=== PATIENT | female | born 1950 | race Caucasian/White ===

== ENCOUNTER 2016-06-16 13:25 | Inpatient (IN) | payer OTHER ==
--- NOTE | 2016-06-16 14:26 | Diag Imaging Result Document ---
PROCEDURE NAME: CHEST-2 VIEWS - 06/16/2016 FRONTAL AND LATERAL CHEST, TWO VIEWS: COMPARISON: 11/17/2015. FINDINGS: The lungs are well expanded. The heart is mildly prominent. The vessels are not distended. No pleural effusions. There are no infiltrates. IMPRESSION: 1. No pneumonia. 2. Mild cardiomegaly.
--- NOTE | 2016-06-16 14:46 | PROVIDER DOCUMENTATION ---
HPI-Respiratory General - General Chief Complaint: Flu Symptoms Stated Complaint: FLU SX Time Seen by Provider: 06/16/16 14:11 Source: patient Allergies/Adverse Reactions: Patient Allergies Allergy/AdvReac Type Severity Reaction Status Date / Time No Known Allergies Allergy Verified 06/16/16 14:33 Home Medications: Home Medication List Medication Instructions Recorded Confirmed Last Taken Type Meclizine [Antivert] 25 mg PO TID PRN PRN 08/03/13 06/16/16 06/16/16 11:00 History ATORVAstatin [Lipitor] 20 mg PO DAILY 10/24/14 06/16/16 11/16/15 07:00 History Gabapentin [Neurontin] 300 mg PO BID 11/18/15 06/16/16 2 Days Ago History Pantoprazole [Protonix] 40 mg PO DAILY 11/18/15 06/16/16 06/16/16 11:00 History Bumetanide [Bumex] 1 mg PO DAILY #0 tablet 11/19/15 06/16/16 Unknown Rx Carisoprodol [Soma] 350 mg PO TID PRN PRN #0 tablet 11/19/15 06/16/16 Unknown Rx Citalopram [Celexa] 40 mg PO DAILY #0 tablet 11/19/15 06/16/16 Unknown Rx Cyanocobalamin [Vitamin B-12] 500 microgm PO DAILY #0 tablet 11/19/15 06/16/16 Unknown Rx Hydralazine [Apresoline] 25 mg PO BID #0 tablet 11/19/15 06/16/16 Unknown Rx Hydrocodone/APAP 7.5 mg/325 mg 1 each PO Q4H PRN PRN #0 tablet 11/19/15 Unknown Rx [[place]-7.5] Metformin [Glucophage] 500 mg PO BID CC #14 tablet 11/19/15 06/16/16 Unknown Rx Potassium Chloride [Klor-Con M20] 20 meq PO DAILY #0 tab.er.prt 11/19/15 Unknown Rx Solifenacin Succinate [Vesicare] 10 mg PO DAILY 06/16/16 06/16/16 Unknown History CephALEXIN [Keflex] 500 mg PO Q6HR #20 capsule 06/20/16 Unknown Rx Losartan [Cozaar] 100 mg PO DAILY #30 tablet 06/20/16 Unknown Rx Rivaroxaban [Xarelto] 15 mg PO BID #42 tablet 06/20/16 Unknown Rx - History of Present Illness-Resp Quality of Pain: reports: aching Severity in ED: reports: mild Onset/Duration: reports: last week Timing: reports: still present Exposure: reports: unknown cause Cough Quality/Degree: reports: moderate Episode Frequency: frequent episodes Current Respiratory Medication Therapy: Initiated see nurses note Modifying Factors: improves with: nothing Associated Symptoms: reports: cough, fever/chills (F), muscle/bodyaches, shortness of breath Similar Symptoms Previously?: Yes Recently seen or treated by another doctor?: No Review of Systems - Adult - REVIEW OF SYSTEMS - ADULT Constitutional: reports: fever. denies: chills Eyes: denies: blurred vision, double vision Ears, Nose, Mouth & Throat: denies: ear pain, nose pain, throat pain Cardiovascular: denies: chest pain, heart murmur, irregular heart rate Respiratory: reports: cough, shortness of breath Gastrointestinal: denies: abdominal pain, diarrhea, nausea, vomiting Genitourinary: denies: dysuria, hematuria Musculoskeletal: reports: muscle aches, muscle weakness. denies: bone pain, joint pain, neck pain Integumentary: denies: hives, itching Neurological: denies: dizziness/vertigo, headache/migraines Psychiatric: reports: no symptoms reported Endocrine: reports: no symptoms reported Hematologic/Lymphatic: reports: no symptoms reported Allergic/Immunologic: reports: no symptoms reported All Other Systems: Reviewed and Negative Past History - Adult - PAST MEDICAL HISTORY-ADULT Review of Records: reports: Nursing Assessment Review, Medications Reviewed, Social history reviewed & non-contributory. Major Childhood Illnesses: reports: denies history Cardiovascular: reports: HTN Respiratory: reports: denies history Gastrointestinal: reports: GERD, polyps Obstetrical/Gynecological: reports: denies history Genitourinary: reports: denies history Musculoskeletal: reports: chronic pain Neurological: reports: denies history Psychiatric: reports: anxiety, depression Endocrine/Immune: reports: Diabetes Other Conditions: reports: denies history - PRIOR SURGERIES/PROCEDURES Surgical/Procedure History: reports: appendectomy, colonoscopy, hysterectomy, other (carpal tunnel) - IMMUNIZATION STATUS Childhood Immunizations: See Nurse Assessment Flu Vaccine: See Nurse Assessment - FAMILY HISTORY Family History: reviewed, not pertinent - SOCIAL HISTORY Smoking: cigarettes, greater than 1 pack/day Provider spent 3-5 mins advising pt. on dangers of tobacco.: Discussed manners to quit use, and f/u contacts for add'l counseling. Substance Use: denies Living Situation: family Physical Exam-General - PHYSICAL EXAM-ADULT Initial Vital Signs Reviewed: Yes - CONSTITUTIONAL General Appearance: appears well, alert, no apparent distress - EYES Eyes: PERRL/EOMI, pink conjunctivae, fundi clear, no AV nicking - HEAD, EARS, NOSE, MOUTH & THROAT HENMT: normocephalic/atraumatic, moist mucous membranes, normal ENT inspection, TMs normal, pharynx normal - NECK Neck: non-tender, full range of motion, supple, normal inspection - RESPIRATORY Respiratory: chest non-tender, lungs clear, normal breath sounds, no pleuratic chest pain, no respiratory distress, no accessory muscle use - CARDIOVASCULAR Cardiovascular: normal peripheral pulses, regular rate, rhythm, no edema, no gallop, no JVD, no murmur - GASTROINTESTINAL (ABDOMEN) Abdominal Exam: normal bowel sounds, non tender, soft, no organomegaly, no pulsatile mass - LYMPHATIC Lymphatic: no adenopathy - MUSCULOSKELETAL Back Exam: normal inspection, no CVA tenderness, no vertebral tenderness Extremity: normal range of motion, non-tender, normal gait, normal inspection, no pedal edema, no calf tenderness, normal capillary refill, pelvis stable - SKIN Integumentary: normal color, normal turgor, warm/dry - NEUROLOGIC Neurologic: grossly normal - PSYCHIATRIC Psych/Mental Status: normal mood/affect, oriented x 3 Progress - PLAN OF CARE/RESULTS Progress/Plan/Lab Results: Laboratory Tests 06/16/16 Unknown Influenza A (Rapid) NEGATIVE Influenza B (Rapid) NEGATIVE Orders Category Date Time Status CHEST-2 VIEWS [RAD] Stat Exams 06/16/16 14:02 Draft Flu [INFLUENZA SCREEN PL] Stat Lab 06/16/16 Completed Vital Signs - 24 hr 06/16/16 13:56 Temperature 99.5 F Pulse Rate 93 H Respiratory 19 Rate Blood Pressure 112/82 O2 Sat by Pulse 88 L Oximetry Laboratory Tests 06/16/16 06/16/16 06/16/16 14:50 14:50 14:50 WBC RBC Hgb Hct MCV MCH MCHC RDW Std Deviation Plt Count MPV Immature Gran % (Auto) Neut % (Auto) Lymph % (Auto) [place] % (Auto) Eos % (Auto) Baso % (Auto) Immature Gran # (Auto) Neut # (Auto) Lymph # (Auto) [place] # (Auto) Eos # (Auto) Baso # (Auto) Sodium 132 L Potassium 6.1 H* Chloride 97 L Carbon Dioxide 26 Anion Gap 9 BUN 26 H Creatinine 1.0 H Estimated GFR/1.73 m2 56 BUN/Creatinine Ratio 26 Glucose 147 H Calculated Osmolality 272 Calcium 9.4 Total Bilirubin 0.60 AST 912 H ALT 660 H Alkaline Phosphatase 158 H Troponin T 0.032 Wvq-[id number]-Ryyowqdoqau Pept 5600 H Total Protein 7.5 Albumin 4.1 Globulin 3.0 Albumin/Globulin Ratio 1.0 Urine Source Urine Color Urine Clarity Urine pH Ur Specific [place] Urine Protein Urine Ketones Urine Blood Urine Nitrite Urine Bilirubin Urine Urobilinogen Urine Microscopic RBC Urine WBC Urine Microscopic WBC Ur Epithelial Cells Urine Bacteria Urine Glucose Influenza A (Rapid) Influenza B (Rapid) 06/16/16 06/16/16 06/16/16 14:50 15:00 Unknown WBC 12.69 H RBC 4.88 Hgb 13.0 Hct 41.4 MCV 84.8 MCH 26.6 L MCHC 31.4 L RDW Std Deviation 16.7 H Plt Count 329 MPV 9.0 Immature Gran % (Auto) 0.5 Neut % (Auto) 77.1 H Lymph % (Auto) 12.1 L [place] % (Auto) 10.1 H Eos % (Auto) 0.0 Baso % (Auto) 0.2 Immature Gran # (Auto) 0.06 H Neut # (Auto) 9.79 H Lymph # (Auto) 1.53 [place] # (Auto) 1.28 H Eos # (Auto) 0.00 Baso # (Auto) 0.03 Sodium Potassium Chloride Carbon Dioxide Anion Gap BUN Creatinine Estimated GFR/1.73 m2 BUN/Creatinine Ratio Glucose Calculated Osmolality Calcium Total Bilirubin AST ALT Alkaline Phosphatase Troponin T Flr-W-Kjlfnmdbrof Pept Total Protein Albumin Globulin Albumin/Globulin Ratio Urine Source CLEAN CATCH Urine Color YELLOW Urine Clarity VERY CLOUDY A Urine pH 5.0 Ur Specific [place] 1.020 Urine Protein 1+(30 mg/dL) A Urine Ketones TRACE Urine Blood NEGATIVE Urine Nitrite POSITIVE A Urine Bilirubin NEGATIVE Urine Urobilinogen NORMAL Urine Microscopic RBC Not Reportable Urine WBC 2+ A Urine Microscopic WBC 20-40 A Ur Epithelial Cells <10 Urine Bacteria 2+ Urine Glucose NEGATIVE Influenza A (Rapid) NEGATIVE Influenza B (Rapid) NEGATIVE - EKG 1 Time of EKG reading by physician:: 15:51 EKG Read and Signed by:: Sher Short EKG Interpretation (*Must complete 3 of following elements*): Abnormal Rate: 87 Rhythm: normal sinus rhythm Comments: possible left atrial enlargement; anterior infarct, age undetermined - XRAY 1 XRAY: Bilateral XRAY Study: Chest Impression: Abnormal XRAY Interpretation: no pneumonia; mild cardiomegaly - CONSULTS/PCP/HOSPITALIST Notification #1 *Consult/PCP/Hospitalist*: Dr. Quinones Time Discussed: 15:56 (Dr. Quinones accepted admit ) Reason/Comments: Dr. Short consulted with Dr. Quinones about admit of Pt Consult Disposition: Admit Departure - Departure Disposition: ADMITTED INPATIENT 09 Certified Medical Emergency: Emergent Condition: Stable Attestation - Scribe Verification/Attestation Scribe:: Maria Luisa Galarza Acting as Scribe for:: Sher Short Scribe documention review:: This chart was documented by a scribe and accurately reflects the service the provider performed and the decisions made by the provider.
[2016-06-16 15:05] LABS: MANUAL DIFF NEEDED? NO
[2016-06-16 15:08] LABS: BASO% 0.2 % (0.0-0.8); HEMATOCRIT 41.4 % (37.0-47.0); IMM GRAN# 0.06 X1000 (0.0-0.04); IMM GRAN% 0.5 % (0.0-0.5); LYMPH# 1.53 X1000 (1.2-3.4); LYMPH% 12.1 % (20.5-51.1); MCH 26.6 PG (27-31); MCHC 31.4 g/dL (33-37); MCV 84.8 FL (81-99); MONO# 1.28 X1000 (0.11-0.59); MONO% 10.1 % (1.7-9.3); NEUT% 77.1 % (42.2-75.2); PLT 329 X1000 (130-400); RBC 4.88 XMIL (4.2-5.4)
[2016-06-16 15:35] LABS: BILIRUBIN URINE NEGATIVE (NEGATIVE); BLOOD URINE NEGATIVE (NEGATIVE); CLARITY VERY CLOUDY (CLEAR); COLOR YELLOW; GLUCOSE URINE NEGATIVE (NEGATIVE); LEUKOCYTES URINE 2+ (NEGATIVE); NITRITE URINE POSITIVE (NEGATIVE); PROTEIN URINE 1+(30 mg/dL) mg/dL (NEGATIVE); UROBILINOGEN URINE NORMAL
[2016-06-16 15:39] LABS: ALBUMIN 4.1 g/dL (3.5-5.0); CALCIUM 9.4 mg/dL (8.8-10.2); POTASSIUM 6.1 mmol/L (3.5-5.1); TOTAL BILIRUBIN 0.6 mg/dL (0.20-1.00); TOTAL PROTEIN 7.5 g/dL (6.3-8.3)
[2016-06-16] MEDS ORDERED: LASIX IV ONE (15:45)
[2016-06-16 15:47] LABS: URINE CULTURE PL NEEDED? YES; URINE EPITHELIAL CELLS <10 /HPF (<10); URINE SOURCE CLEAN CATCH; URINE WBC 20-40 /HPF (<10)
[2016-06-16 16:44] LABS: CALCIUM 9.7 mg/dL (8.8-10.2); POTASSIUM 5.7 mmol/L (3.5-5.1)
[2016-06-16] MEDS ORDERED: NORCO-7.5 PO PRN (17:42)
[2016-06-16] MEDS ORDERED: SOMA PO PRN (17:42)
[2016-06-16] MEDS: COZAAR PO SCH (19:50)
[2016-06-16] MEDS: KEFLEX PO SCH (19:50)
[2016-06-16] MEDS: LASIX IV SCH ×2 (19:50→21:14)
[2016-06-16] MEDS: ASPIRIN PO SCH ×2 (19:50→21:14)
[2016-06-16] MEDS: APRESOLINE PO SCH ×2 (19:50→21:14)
[2016-06-16] MEDS: NEURONTIN PO SCH ×2 (19:50→21:14)
[2016-06-16] MEDS: NITROGLYCERIN TOP SCH (19:51)
--- NOTE | 2016-06-16 21:20 | HISTORY AND PHYSICAL ---
CHIEF COMPLAINT: Shortness of breath. PRESENT ILLNESS: This is the first recent [facility] admission for this 66-year-old, white female with COPD and smoker, who presented to the emergency room with a history of progressive shortness of breath over about a week's time. She takes her diuretic, Bumex, p.r.n. and had not had any for 2 days. On presentation, O2 saturation was about 75. D-dimer was elevated at 4.3. There was no calf tenderness or significant ankle edema. Chest x-ray showed cardiomegaly but no pulmonary edema. proBNP was 5600. Troponin T was normal at 0.03. She was given Lasix 40 mg IV in the ER and is admitted on oxygen with a Venturi mask to the medical floor. PAST MEDICAL HISTORY: Significant for carotid vascular disease requiring endarterectomy. She has been diabetic for several years fairly well-controlled on metformin. She was admitted in November 2015 with diagnosis of carbon monoxide poisoning and COPD. There is a history of mild claudication with ambulation. 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 PRESENT MEDICATIONS: Metformin 500 mg b.i.d., hydralazine 25 mg b.i.d., aspirin 81 mg once daily, [place] 10/325 1 t.i.d. for pain, Soma 350 mg b.i.d., Celexa 40 mg 1 daily, Protonix 40 mg 1 daily, gabapentin 300 mg b.i.d., Januvia 100 mg daily, atorvastatin 20 mg at bedtime, and vitamin B complex 1 daily. ALLERGIES: None known. REVIEW OF SYSTEMS: Chronic smoker. No history of recent weight change. She has had occasional trace ankle edema and she takes Bumex p.r.n. She has chronic back and neck pain requiring [place] and Soma. Her also smokes. FAMILY HISTORY: Significant for hypertension and heart disease. She had been on losartan 100 mg daily. This was discontinued in April. Her last time in the office was 04/22/2016 and blood pressure was 138/60. SOCIAL HISTORY: and lives with her . She smokes over a pack a day. There is no history of significant alcohol use. PHYSICAL EXAMINATION: VITAL SIGNS: Temperature 97.8 degrees, heart rate 83, respirations 21, blood pressure 181/105, O2 saturation on Venturi mask 93%. Height 5 feet 7 inches, weight 218. GENERAL: Patient is a well-developed, well-nourished white female with shortness of breath. HEENT: Pupils equal, round, and reactive to light. Tympanic membranes without inflammation. Pharynx benign with no erythema or exudate. NECK: Supple with no mass or lymphadenopathy. There is no jugular venous distention. HEART: Regular in rate and rhythm with no murmur, rub or gallop. LUNGS: Clear with no rales or rhonchi. ABDOMEN: Soft with no mass, tenderness, or organomegaly. EXTREMITIES: No cyanosis, clubbing, or edema. There is no calf tenderness. RECTAL AND GENITALIA: Deferred. NEUROLOGICAL: Grossly intact. IMPRESSION: 1. Chronic obstructive pulmonary disease, acute exacerbation. 2. Cystitis. 3. Hypertension. 4. Smoker. PLAN: Admit for further evaluation and treatment including IV Lasix. Echocardiogram is ordered as well as venous Doppler study of her legs.
--- NOTE | 2016-06-16 22:31 | EKG Report ---
Test Performed on : 06/16/2016 3:51:08 PM Test Reason : Blood Pressure : / mmHG Vent. Rate : 087 BPM Atrial Rate : 087 BPM P-R Int : 156 ms QRS Dur : 078 ms QT Int : 362 ms P-R-T Axes : 057 011 061 degrees QTc Int : 435 ms Normal sinus rhythm. Possible Left atrial enlargement Anterior infarct , age undetermined Abnormal ECG No previous ECGs available Unconfirmed Result
[2016-06-17] MEDS: KEFLEX PO SCH ×4 (02:47→20:55)
[2016-06-17] MEDS: NITROGLYCERIN TOP SCH ×4 (02:47→20:55)
[2016-06-17] MEDS: PROTONIX PO SCH (06:03)
[2016-06-17] MEDS: LASIX IV SCH ×2 (08:22→20:55)
[2016-06-17] MEDS: LOVENOX SUBQ SCH (08:22)
[2016-06-17] MEDS: APRESOLINE PO SCH ×2 (08:22→20:55)
[2016-06-17] MEDS: COZAAR PO SCH (08:23)
[2016-06-17] MEDS: VESICARE PO SCH (08:23)
[2016-06-17] MEDS: ANTIVERT PO SCH (08:23)
[2016-06-17] MEDS: CELEXA PO SCH (08:23)
[2016-06-17] MEDS: GLUCOPHAGE PO SCH ×2 (08:23→16:56)
[2016-06-17] MEDS: NEURONTIN PO SCH ×2 (08:23→20:55)
[2016-06-17] MEDS: LIPITOR PO SCH (08:24)
--- NOTE | 2016-06-17 09:22 | PROGRESS NOTE ---
DATE: 06/17/2016 OBJECTIVE: Vital Signs: Temperature 98.4 degrees, heart rate 86, respirations 20, blood pressure 160/55, O2 saturation 93% on Venturi mask. General: She rested fairly well last night. She cannot tell if there is any improvement in her breathing. Lungs: Clear to auscultation. Abdomen: Soft. PLAN: Venous Doppler of her legs and echocardiogram.
[2016-06-17] MEDS ORDERED: ROBITUSSIN-DM PO PRN (17:08)
[2016-06-17] MEDS: ASPIRIN PO SCH (20:55)
[2016-06-17] MEDS: DUONEB (A & A) INH SCH (22:46)
[2016-06-18] MEDS ORDERED: LABETALOL ONE (01:13)
[2016-06-18] MEDS: NITROGLYCERIN TOP SCH ×4 (02:28→20:00)
[2016-06-18] MEDS: KEFLEX PO SCH ×4 (02:28→20:00)
[2016-06-18] MEDS: DUONEB (A & A) INH SCH ×4 (03:44→23:29)
[2016-06-18 06:08] LABS: AGAP 11; BUN 22 mg/dL (8-22); CALCIUM 9.5 mg/dL (8.8-10.2); CHLORIDE 96 mmol/L (98-107); COSMO 291; POTASSIUM 3.6 mmol/L (3.5-5.1); SODIUM 143 mmol/L (136-145); TCO2 37 mmol/L (25-35)
[2016-06-18] MEDS: PROTONIX PO SCH (06:18)
--- NOTE | 2016-06-18 08:22 | PROGRESS NOTE ---
DATE: 06/18/2016 Stable with temperature 97.6, heart rate 77, respirations 18, and blood pressure 159/67. O2 saturation 96% on nasal oxygen. LABORATORY: Sodium 143, potassium 3.6, BUN 22, creatinine 0.8. The patient feels a little better with less shortness of breath. Lungs are clear to auscultation. There is no ankle edema. Results of tests done yesterday including echocardiogram and venous Doppler of her legs were pending. PLAN: Continue current therapy. Nebulizer treatments were added yesterday.
[2016-06-18] MEDS: LOVENOX SUBQ SCH ×2 (08:48→20:00)
[2016-06-18] MEDS: CELEXA PO SCH (08:48)
[2016-06-18] MEDS: NEURONTIN PO SCH ×2 (08:48→20:23)
[2016-06-18] MEDS: COZAAR PO SCH (08:49)
[2016-06-18] MEDS: LIPITOR PO SCH (08:49)
[2016-06-18] MEDS: ANTIVERT PO SCH (08:49)
[2016-06-18] MEDS: VESICARE PO SCH (08:49)
[2016-06-18] MEDS: GLUCOPHAGE PO SCH ×2 (08:50→16:50)
[2016-06-18] MEDS: LASIX IV SCH ×2 (08:50→20:23)
[2016-06-18] MEDS: APRESOLINE PO SCH ×2 (08:50→20:23)
--- NOTE | 2016-06-18 19:00 | ECHO REPORT ---
ORDER DATE: 06/17/2016 INTERPRETING PHYSICIAN: Dr. Salvador CLINICAL INDICATIONS: Dpvrh[age]heza[age]gr[age]-old female. REASON FOR STUDY: Congestive heart failure, hypoxia. M-MODE MEASUREMENTS: Right ventricle: 4.9 cm. Left ventricle end diastole: 4.0 cm. Left ventricle end systole: 2.6 cm. Posterior wall: 1.2 cm. Interventricular septum: 1.0 cm. Left atrium: 3.9 cm. Aortic root: 3.6 cm. SUMMARY OF 2-DIMENSIONAL IMAGING: The left ventricle is basically normal. The ejection fraction is probably in the order of 65%. There is flattening of the interventricular septum both during systole and diastole consistent with pressure overload. The pressure overload is on the right ventricle. The right ventricle is markedly dilated, and it shows global hypokinesis except at the apex where it appears to be slightly hyperkinetic. That is a sign associated with pulmonary embolism. Aortic valve looks normal. Color flow mapping is unremarkable. Mitral valve looks normal. Color flow mapping unremarkable. Pulse wave Doppler of mitral inflow shows reversal of the E and the A wave. Tissue Doppler of septal and lateral mitral annulus averages 10 cm. Pulse wave Doppler of pulmonary venous flow is normal. Tricuspid valve shows mild to moderate degree of regurgitation. The pulmonary pressure based on the inferior vena cava size of 1.8 cm is somewhere in the range of 49 to 54 mmHg. There is moderate pulmonary hypertension. Pulmonic valve looks normal. SUMMARY: This echocardiographic study is highly suspicious for acute pressure overload of the right ventricle consistent with acute pulmonary embolism, which is probably significant. Patient should be immediately anticoagulated. The left-sided structures and the cardiac valves in general appear to be unremarkable.Report was called to RN in charge, EMILIANA on the evening of June 18 2016 around 7PM. MTDD
[2016-06-18] MEDS: ASPIRIN PO SCH (20:23)
[2016-06-19] MEDS: KEFLEX PO SCH ×4 (01:54→20:08)
[2016-06-19] MEDS: NITROGLYCERIN TOP SCH ×4 (01:55→20:08)
[2016-06-19] MEDS: DUONEB (A & A) INH SCH ×4 (04:38→21:16)
[2016-06-19] MEDS: PROTONIX PO SCH ×2 (06:23→08:36)
--- NOTE | 2016-06-19 07:12 | Extremity Venous Study ---
PROCEDURE NAME: Venous U/S Bilateral Legs - 06/17/2016 VENOUS ULTRASOUND OF THE LOWER EXTREMITIES: FINDINGS: The deep veins of the legs are compressible and demonstrate no evidence of obstruction to color Doppler flow. No abnormal fluid collections are present. IMPRESSION: No evidence of deep venous thrombosis.
--- NOTE | 2016-06-19 08:14 | PROGRESS NOTE ---
DATE: 06/19/2016 VITAL SIGNS: Temperature 98.7 degrees, heart rate 84, respirations 18, blood pressure 127/54. She is currently on 4 L nasal oxygen. Echocardiogram report yesterday suggested pulmonary emboli. Right ventricle was dilated and pulmonary pressures were elevated. Venous Doppler of her leg showed no evidence of DVT. She is to have a pulmonary arteriogram today to confirm pulmonary emboli. Lasix is changed to p.o. Attempts will be made to ambulate the patient and have her get up in a chair. Lovenox was increased to 70 mg q.12 hours.
[2016-06-19] MEDS: ANTIVERT PO SCH (08:35)
[2016-06-19] MEDS: LIPITOR PO SCH (08:35)
[2016-06-19] MEDS: NEURONTIN PO SCH ×2 (08:36→20:08)
[2016-06-19] MEDS: CELEXA PO SCH (08:36)
[2016-06-19] MEDS: VESICARE PO SCH (08:36)
[2016-06-19] MEDS: APRESOLINE PO SCH ×2 (08:37→20:08)
[2016-06-19] MEDS: COZAAR PO SCH (08:37)
[2016-06-19] MEDS: GLUCOPHAGE PO SCH ×3 (08:37→19:41)
[2016-06-19] MEDS: LOVENOX SUBQ SCH ×2 (08:43→20:08)
[2016-06-19] MEDS: LASIX PO SCH (09:40)
--- NOTE | 2016-06-19 10:07 | Diag Imaging Result Document ---
PROCEDURE NAME: ANGIOGRAM/PULMONARY ARTERIES - 06/19/2016 CTA CHEST: COMPARISON: None available. FINDINGS: The contrast bolus is somewhat suboptimal. There is also some degree of mild motion artifact at the lower lung zones, which may decrease sensitivity. In the left lower lobe there are few pulmonary artery branches that appear somewhat narrowed and contain potential filling defects (for instance, please see image 193 of series 4.) Although it is possible that this is the result of the motion artifact, small pulmonary emboli cannot be excluded. If so, they appear to be flattened and adherent to the wall of the vessel, which suggests that they may be chronic. No other definite filling defects can be identified more centrally. There is patchy mild-to- moderate aortic atherosclerotic calcification. There is no evidence of aortic aneurysm or dissection. The heart is somewhat enlarged. There is mild bibasilar subsegmental atelectasis and/or scarring. There is a calcified granuloma in the medial aspect of the right lower lobe. The lungs are essentially clear, otherwise. There is no evidence of pulmonary infarct. There is no pleural fluid collection. IMPRESSION: 1. Questionable small filling defects in the distal branches of the left pulmonary artery in the left lower lobe. Small pulmonary emboli cannot be excluded. Please see the above discussion. 2. Other incidental/nonacute findings detailed above. 3. This potentially critical result was reported to the patient's nurse Theresa Landis at approximately 0950 hours to be immediately relayed to the patient's attending physician.
[2016-06-19] MEDS: ASPIRIN PO SCH (20:08)
[2016-06-20] MEDS: KEFLEX PO SCH ×2 (02:13→08:45)
[2016-06-20] MEDS: NITROGLYCERIN TOP SCH ×2 (02:13→08:45)
[2016-06-20] MEDS: DUONEB (A & A) INH SCH ×2 (03:21→08:16)
[2016-06-20] MEDS: PROTONIX PO SCH ×2 (05:56→06:12)
[2016-06-20 06:34] LABS: AGAP 11; BUN 36 mg/dL (8-22); CALCIUM 9.5 mg/dL (8.8-10.2); CHLORIDE 94 mmol/L (98-107); COSMO 291; POTASSIUM 3.3 mmol/L (3.5-5.1); SODIUM 139 mmol/L (136-145); TCO2 33 mmol/L (25-35)
[2016-06-20 07:45] VITALS: BP 133/48
[2016-06-20] MEDS ORDERED: XARELTO PO SCH (08:15)
[2016-06-20] MEDS: CELEXA PO SCH (08:44)
[2016-06-20] MEDS: VESICARE PO SCH (08:44)
[2016-06-20] MEDS: ANTIVERT PO SCH (08:44)
[2016-06-20] MEDS: COZAAR PO SCH (08:44)
[2016-06-20] MEDS: NEURONTIN PO SCH (08:44)
[2016-06-20] MEDS: LASIX PO SCH (08:45)
[2016-06-20] MEDS: APRESOLINE PO SCH (08:45)
--- NOTE | 2016-06-20 20:29 | DISCHARGE SUMMARY ---
ADMISSION DATE: 06/16/2016 DISCHARGE DATE: 06/20/2016 FINAL DIAGNOSES: Pulmonary emboli, COPD, hypertension, dilated right ventricle with increased pressure, pulmonary hypertension. DISCHARGE MEDICATIONS: Usual medications at home plus losartan 10 mg 1 daily, Keflex 500 mg q.i.d. x5 days, and Xarelto 15 mg b.i.d. HISTORY: This is the first recent [facility] admission for this 66-year-old, white female who presented to the emergency room with acute shortness of breath. BNP was moderately elevated and D- dimer was elevated. She was placed on a Ventimask at 50% FiO2. Chest x-ray showed no infiltrates. INITIAL LABORATORY: Sodium 132, potassium 6.1, BUN 26, creatinine 1.0. AST 912, ALT 660, alkaline phosphatase 158, BNP 5600, D-dimer 4.3. White blood count 34206, hemoglobin 13.0, hematocrit 41.4. HOSPITAL COURSE: Venous Doppler of her legs was done and revealed no DVT. Echocardiogram was suggestive of pulmonary emboli with increased right ventricular pressure and dilation of the right ventricle. Pulmonary arteriogram reveals suggestion of pulmonary emboli. She initially was on Lovenox 40 mg daily and this was increased to 70 mg q.12 hours. O2 sat last night on room air was 95%, but she is needing some oxygen this morning. She will be sent home with oxygen at 2 L nasal, and Xarelto. She is to return to the office in 1 week for followup.
[2016-06-20] MEDS ORDERED: LIPITOR PO SCH (21:00)
--- NOTE | 2016-06-26 12:43 | DISCHARGE SUMMARY ---
ADMISSION DATE: 06/16/2016 DISCHARGE DATE: 06/20/2016 DISCHARGE SUMMARY ADDENDUM: The patient was found to have pulmonary emboli with dilated right ventricle and markedly increased pulmonary pressures. She was felt to have pulmonary embolus with acute cor pulmonale.
== END 2016-06-20 11:25 | disposition home or self-care (01) | DRG 175 ==
LOC: P.ED 13:25 → P.MEDSURG 13:26
PROVIDERS: ATTEND Family Medicine
DX: I26.09 Other pulmonary embolism with acute cor pulmonale (principal); I27.2 Other secondary pulmonary hypertension; J44.1 Chronic obstructive pulmonary disease with (acute) exacerbation; N30.90 Cystitis, unspecified without hematuria; I10 Essential (primary) hypertension; F17.210 Nicotine dependence, cigarettes, uncomplicated; E11.9 Type 2 diabetes mellitus without complications; I73.9 Peripheral vascular disease, unspecified; G89.29 Other chronic pain; M54.9 Dorsalgia, unspecified; M54.2 Cervicalgia; Z79.899 Other long term (current) drug therapy; Z79.84 Long term (current) use of oral hypoglycemic drugs; Z79.82 Long term (current) use of aspirin; Z82.49 Family history of ischemic heart disease and other diseases of the circulatory system
CPT/HCPCS: 51702; 71020; 71275; 80048; 80053; 81001; 83880; 84484; 85025; 85379; 87077; 87088; 87804; 93308; 93970; 94640; 94761; 96374; J1650; J1940; Q9967